=== PATIENT | male | born 1995 | race Caucasian/White ===

== ENCOUNTER 2018-06-05 13:22 | Emergency (ER) | payer OTHER ==
[~2018-06-05] VITALS: Ht 193 cm; Wt 90.5 kg
[2018-06-05 13:25] VITALS: TEMP 36.3; Ht 193 cm; Wt 90.5 kg
[2018-06-05] MEDS ORDERED: PROP10TA7 PO (14:00)
[2018-06-05] MEDS ORDERED: RALT400T PO (14:52)
[2018-06-05] MEDS ORDERED: TRVHP PO (14:52)
[2018-06-05 14:57] VITALS: BP 148/91; PULSE 79; O2SAT 100
--- NOTE | 2018-06-06 15:48 | EMERGENCY ROOM VISIT NOTE ---
ED Visit Note First contact with patient: 13:57 Chief Complaint: I wanted to speak to someone about HIV. History of Present Illness: Mr. Wild is a 22-year-old white male who ambulates into the ED requesting information on HIV testing and PEP treatment after possible exposure to HIV. Patient reports approximately 40 hours ago he had his first episode of unprotected anal intercourse with another male. He reports the male he was with told him that 3 months ago he tested positive for HIV. Patient reports he never been tested for HIV. Currently patient reports he is asymptomatic. He reports he was just seeking information about HIV testing, HIV in general and PEP treatments post exposure. I did have a lengthy conversation with the patient about HIV and HIV testing. I did contact the National PEP Hotline and spoke to Malia. She made recommendations for testing and treatment. On further questioning the patient he currently reports that he is asymptomatic and is feeling well. Physical Examination: Vital Signs: Date Time Temp Pulse Resp B/P (MAP) Pulse Ox O2 Delivery O2 Flow Rate FiO2 06/05/18 14:57 79 19 148/91 100 06/05/18 13:25 36.3 82 18 163/92 100 Room Air GENERAL: 22-year-old male in no acute distress, nontoxic-appearing, afebrile and hemodynamically stable. Patient is slightly anxious. NEUROLOGICAL: Awake, alert and oriented to person, place and time. Answering questions appropriately and following commands. ED Course: Patient is assessed as noted above. Patient's medication list was reviewed. After lengthy conversation patient elected to use 1 of the community resources given to him for further counseling and testing. He did ask me for prescriptions for Truvada and Raltegravir. Patient was educated about today's findings and instructed on his treatment plan ; he verbalized understanding and agreement with this plan. Clinical Impression: Possible HIV exposure. Disposition: Patient discharged home in stable condition; prior to departure he was reassessed and subjectively reported he was symptom-free. Plan: Patient was encouraged to use Truvada and Raltegravir as prescribed. Patient was encouraged to follow-up with [facility] or 1 of the community services he was provided information on. Patient was encouraged return the ED as needed or any new/concerning symptoms.
== END 2018-06-05 14:58 | disposition home or self-care (01) ==
LOC: C.EDB 13:24 → C.EDD 14:58
DX: Z20.6 Contact with and (suspected) exposure to human immunodeficiency virus [HIV] (principal)